=== PATIENT | female | born 2005 | race Caucasian/White ===

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

== ENCOUNTER 2025-06-03 12:13 | Emergency (ER) | payer MEDICAID, SELFPAY ==
--- NOTE | ~2025-06-03 | CT_ITS ---
CLINICAL HISTORY: abdominal pain, nausea, vomiting Exam: Contrast-enhanced CT abdomen and pelvis with multiplanar reformats. Comparison: 12/25/2022. Findings: CT abdomen: Lung bases appear clear. Liver is free of focal lesions and ductal dilatation. Gallbladder is somewhat degraded by motion artifact although appears grossly unremarkable. Spleen is mildly prominent measuring 14.0 cm AP dimension, relatively similar compared with the prior exam. Pancreas is somewhat degraded by motion however appears grossly unremarkable. Adrenal glands appear unremarkable. Kidneys are grossly unremarkable. No free intraperitoneal fluid or retroperitoneal masses or adenopathy. Abdominal aorta is normal caliber. Bowel loops reveal no abnormal wall thickening or distention. The appendix is not definitively delineated although there is no CT evidence of appendicitis. CT pelvis: Uterus and adnexal structures appear unremarkable. Urinary bladder is free of gross filling defects. No pelvic masses, fluid or adenopathy. Osseous structures reveal no destructive osseous lesions. Impression: 1. No acute abnormalities or CT explanation for reported history of abdominal pain. This document has been electronically signed by: Ferny Yeung MD on 06/03/2025 16:29:43
--- NOTE | ~2025-06-03 | XR_ITS ---
CLINICAL HISTORY: cough,fever 2 view chest x-ray. Comparison: None Findings: No consolidation or effusion. Cardiac and mediastinal contours are unremarkable. Bones unremarkable. Impression: 1. No acute pulmonary disease. This document has been electronically signed by: Ferny Yeung MD on 06/03/2025 13:41:25
[2025-06-03 12:20] VITALS: BP 103/63; PULSE 122; O2SAT 100
[2025-06-03 12:34] VITALS: BP 126/68; PULSE 107; RESP 18; TEMP 39.3; O2SAT 97
[2025-06-03 12:44] VITALS: BMI 30.1
[2025-06-03] MEDS: Lactated Ringers 1,000 ML 999 ML IV ×2 (13:22→15:24)
[2025-06-03 13:29] LABS: MANUAL DIFF FLAG NO
[2025-06-03 13:30] LABS: Hematocrit 34.3 % (37.0-47.0); Hemoglobin 11.2 g/dl (12.0-16.0); Imm Gran Abs Auto 0.04 X10*3/uL (0.00-0.03); Imm Gran Pct Auto 0.5 % (0.0-0.4); Lymphocytes Absolute Auto 0.4 X10*3/uL (1.2-4.9); Mean Corpuscular HGB Conc 32.7 g/dl (31.0-35.0); Mean Corpuscular Hemoglobin 28.2 pg (27.0-33.0); Mean Corpuscular Volume 86.4 fL (80.0-98.0); NRBC Abs Auto 0.000 X10*3/uL (0.0-0.012); NRBC Pct Auto 0.0 /100WBC (0.0-0.2); Platelet Count 145 X10*3/uL (160-400); Red Blood Count 3.97 X10*6/uL (4.20-5.50); White Blood Count 8.2 X10*3/uL (4.8-10.8)
[2025-06-03 13:37] LABS: IDNOW Serial# 6674DD1D; Strep A Nucleic Acid Negative (Negative)
[2025-06-03 13:42] LABS: Anion Gap 15 (12-20); Blood Urea Nitrogen 9 mg/dL (9-16); Calcium 8.7 mg/dL (8.4-10.2); Carbon Dioxide 20 mmol/L (22-29); Chloride 105 mmol/L (96-108); Creatinine Clr Calc Pharmacy 87.3; Estimated Glomerular Filt Rate > 60; Potassium 3.6 mmol/L (3.3-5.1); Sodium 136 mmol/L (135-145)
[2025-06-03 14:11] VITALS: TEMP 37.7
[2025-06-03 14:11] LABS: Resp Syncy Virus RNA Qual PCR NEGATIVE (Negative); SARS COV2 PCR INHOUSE NEGATIVE (Negative)
[2025-06-03 15:00] VITALS: BP 110/62; PULSE 117; RESP 20; TEMP 37.7; O2SAT 98
[2025-06-03 15:03] LABS: Appearance Urine Hazy; Glucose Urine UA Negative (Negative); PH 6.0 (5.0-9.0); Specific Gravity - Urine 1.020 (1.005-1.025); UMIC TRIGGER UACC YES
[2025-06-03 15:08] LABS: UPreg QC Valid YES
--- NOTE | 2025-06-03 15:22 | ED.GENADULT ---
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 Monzon HPI narrative: 20-year-old female came in for evaluation of generalized body ache, sore throat, cough, abdominal pain, nausea, and vomiting. x1 day, history of exposure to a family member with similar symptoms, patient also is complaining of abdominal pain mostly on right side. Related Data Previous Rx's ?Medication ?Instructions ?Recorded ibuprofen 400 mg tablet 400 mg PO Q6H PRN pain #20 tabs 06/03/25 ondansetron 4 mg disintegrating 4 mg PO TID PRN nausea and 06/03/25 tablet vomiting 5 days #10 tabs oseltamivir 75 mg capsule (Tamiflu) 75 mg PO Q12H 5 days #10 caps 06/03/25 Allergies Allergy/AdvReac Type Severity Reaction Status Date / Time No Known Allergies (No Known Allergy Unverified 06/03/25 12:45 Allergies*) Review of Systems Review of Systems: All other systems are reviewed and are negative Constitutional: Reports as per HPI and Reports no additional constitutional complaints Eyes: Reports as per HPI and Reports no additional eye complaints Reports system reviewed and no additional complaints, except as documented Cardiovascular: Reports as per HPI and Reports no additional cardiovascular complaints Respiratory: Reports as per HPI and Reports no additional respiratory complaints Gastrointestinal: Reports as per HPI and Reports no additional gastrointestinal complaints Genitourinary: Reports no additional female genitourinary complaints Musculoskeletal: Reports no additional musculoskeletal complaints Skin/Breast: Reports system reviewed and no additional complaints, except as docu Psychiatric: Reports no additional psychiatric complaints Endocrine: Reports no additional endocrine complaints Hematologic/Lymphatic: Reports no additional hematologic/lymphatic complaints Allergic/Immunologic: Reports no additional allergic/immunologic complaints Reports system reviewed and no additional complaints, except as documented and Reports Abnormal speech present [facility] Past Medical History Medical History Problem with family member being ill Insomnia Palpitations Lightheadedness No known health problems Patient denies significant medical history Problem with family member being ill Insomnia Palpitations Lightheadedness No known health problems Patient denies significant medical history Problem with family member being ill Insomnia Palpitations Lightheadedness No known health problems Patient denies significant medical history Problem with family member being ill Insomnia Palpitations Lightheadedness No known health problems Social History Social History Unable to assess alcohol history related to: Unknown Alcohol intake: never Smoked in Last 30 Days: No Use of substances other than those prescribed or required for medical reasons: Unknown Advance Directives: No Advance Directives Information Provided: Yes Physical Exam ED Vital Signs: Vital Signs - 24 hr 06/03/25 12:34 06/03/25 14:11 06/03/25 15:00 Temperature 102.7 F H 99.9 F 100 F Pulse Rate 107 H 117 H Respiratory Rate 18 20 Blood Pressure 126/68 110/62 Pulse Oximetry 97 98 Oxygen Delivery Method Room Air Room Air 06/03/25 17:39 Temperature 98.1 F Pulse Rate 98 Respiratory Rate 16 Blood Pressure 116/65 Pulse Oximetry 97 Oxygen Delivery Method Room Air BMI result Body Mass Index 30.1 Vital signs have been reviewed and appear to be correct. Blood pressure elevated. Heart rate Elevated. Respiratory rate normal. Temperature normal. Oxygen saturation normal. Appearance: Alert. Oriented X3. No acute distress. Head: Normal external exam. Normocephalic. Atraumatic. No Mann signs noted. No raccoon eyes noted Eyes: PERRLA. EOMI. Conjunctiva and sclera normal. Eyelids normal. ENT: TM's Normal. Pharynx normal. Uvula midline. Moist mucous membranes. No trismus noted. No drooling noted. No muffled voice noted. Neck: Normal inspection. Neck supple. FROM. No adenopathy. Thyroid Normal. No meningeal signs. No neck mass noted. CVS: Normal heart rate and rhythm. Heart sound normal. No murmurs noted. Pulses normal throughout. Respiratory: No respiratory distress. Painless inspiration. Breath sounds normal. No wheezes/rales/rhonchi noted. Chest nontender. No accessory muscle usage noted or decreased air movement noted. Abdomen: Soft and nontender. Bowel sounds normal in all 4 quadrants. No distention noted. No organomegaly noted. No visible injury noted. Back: No CVA tenderness. Full range of motion noted. Skin: Skin warm and dry. Normal skin color. Normal skin turgor. No rashes/lesions/lacerations noted. Extremities: No lower extremity edema. Extremities exhibit normal range of motion. Extremities nontender. Neuro: Oriented X 3. Cranial nerve exam: II-XII are grossly intact No motor deficit. No sensory deficit. Reflexes normal. Course Reevaluation(s) Reevaluation #1: 20-year-old female with flu-like symptoms, patient is positive for influenza A, will start on Tamiflu, IV hydration, symptomatic treatment with Zofran. Abdominal pain and hematuria abdominal pain can be part of the viral infection patient will get CT abdomen and pelvis. Signed out to Dr. Michaels to check on the CT and re-evaluate. Time: 16:00 Medications Administered Discontinued Medications Generic Name Dose Route Start Last Admin Trade Name Freq PRN Reason Stop Dose Admin Acetaminophen 975 mg 06/03/25 12:48 06/03/25 12:55 Acetaminophen 325 Mg Tablet PO 06/03/25 12:49 975 mg ONCE ONE Administration Lactated Ringer's 1,000 mls @ 999 mls/hr 06/03/25 13:15 06/03/25 14:39 Lr IV 06/03/25 14:15 Infused .Q1H1M ROVERTO Infusion Acetaminophen 1,000 mg in 100 mls @ 400 mls/hr 06/03/25 15:02 06/03/25 15:46 Ofirmev IV 06/03/25 15:16 Infused ONCE ONE Infusion Lactated Ringer's 1,000 mls @ 999 mls/hr 06/03/25 15:15 06/03/25 16:23 Lr IV 06/03/25 16:15 Infused .Q1H1M ROVERTO Infusion Iohexol 100 ml 06/03/25 15:41 06/03/25 15:42 Iohexol 350 Mg/Ml 100 Ml Infus..Btl IV 06/03/25 15:42 85 ml ONCE ONE Administration Ketorolac Tromethamine 15 mg 06/03/25 15:23 06/03/25 15:41 Ketorolac Tromethamine 15 Mg/Ml Vial IVPUSH 06/03/25 15:24 15 mg ONCE ONE Administration Ondansetron HCl 4 mg 06/03/25 15:02 06/03/25 15:22 Ondansetron Hcl 4 Mg/2 Ml Vial IVPUSH 06/03/25 15:03 4 mg ONCE ONE Administration Oseltamivir Phosphate 75 mg 06/03/25 15:25 06/03/25 15:42 Oseltamivir Phosphate 75 Mg Capsule PO 06/03/25 15:26 75 mg ONCE ONE Administration Medical Decision Making Medical Decision Making [facility] Narrative: Influenza was positive. patient well-appearing. Given IV fluids. Symptomatically feel improved. CT scan result was negative. Tolerating p.o.. Patient to be discharged home Differential Diagnosis Differential Diagnoses: The differential diagnosis associated with the presentation includes ( pneumonia, pneumothorax, pleural effusion, influenza a, RSV, COVID-19 infection, kidney stone, acute appendicitis, dehydration, electrolyte derangement, severe anemia, UTI.) Admission/Observation Consideration of admission/observation: Escalation of care including admission/observation considered Lab Data [facility] Lab Attestation statement: I reviewed the patient's lab results. 06/03/25 13:20 06/03/25 13:20 Labs: Lab Results 06/03/25 06/03/25 06/03/25 Range/Units 13:19 13:20 14:57 WBC 8.2 (4.8-10.8) X10*3/uL RBC 3.97 L (4.20-5.50) X10*6/uL Hgb 11.2 L (12.0-16.0) g/dl Hct 34.3 L (37.0-47.0) % MCV 86.4 (80.0-98.0) fL MCH 28.2 (27.0-33.0) pg MCHC 32.7 (31.0-35.0) g/dl RDW 13.2 (11.0-16.0) % Plt Count 145 L D (160-400) X10*3/uL MPV 13.0 H (9.4-12.3) fL Immature Gran % (Auto) 0.5 H (0.0-0.4) % Neut % (Auto) 84.7 H (45-73) % Lymph % (Auto) 5.2 L (20-40) % [place] % (Auto) 9.0 (2-11) % Eos % (Auto) 0.2 (0-4) % Baso % (Auto) 0.4 (0-2) % Lymph # (Auto) 0.4 L (1.2-4.9) X10*3/uL [place] # (Auto) 0.7 (0.1-1.2) X10*3/uL Eos # (Auto) 0.0 (0.0-0.4) X10*3/uL Baso # (Auto) 0.0 (0.0-0.2) X10*3/uL Abs Immat Gran (auto) 0.04 H (0.00-0.03) X10*3/uL Absolute Neuts (auto) 6.9 (2.0-8.3) x10*3/uL Absolute Nucleated RBC 0.000 (0.0-0.012) X10*3/uL Nucleated RBC % (auto) 0.0 (0.0-0.2) /100WBC Sodium 136 (135-145) mmol/L Potassium 3.6 (3.3-5.1) mmol/L Chloride 105 (96-108) mmol/L Carbon Dioxide 20 L (22-29) mmol/L Anion Gap 15 (12-20) BUN 9 (9-16) mg/dL Creatinine 1.01 (0.5-1.4) mg/dL Estim Creat Clear Calc 87.3 Estimated GFR > 60 Random Glucose 101 (60-115) mg/dL Calcium 8.7 D (8.4-10.2) mg/dL Beta HCG, Quant < 2 mIU/mL Urine Color Yellow Urine Appearance Hazy Urine pH 6.0 (5.0-9.0) Ur Specific [place] 1.020 (1.005-1.025) Urine Protein Negative (Neg-Trace) mg/dL Urine Glucose (UA) Negative (Negative) mg/dL Urine Ketones >=80 (Negative) mg/dL Urine Blood Large (3+) H (Negative) Urine Nitrite Negative (Negative) Ur Leukocyte Esterase Negative (Negative) Urine RBC >20 H (0-2) /HPF Urine WBC 0-5 (0-5) /HPF Ur Squamous Epith Cells 11-20 (0-2) /HPF Urine Bacteria Trace (None Seen) Hyaline Casts 0-2 (0-2) /LPF Urine Test NEGATIVE (NEGATIVE) Influenza Type A (PCR) POSITIVE A (Negative) Influenza Type B (PCR) NEGATIVE (Negative) RSV RNA Qual (PCR) NEGATIVE (Negative) SARS-CoV-2 RNA (RT-PCR) NEGATIVE (Negative) S. pyogenes GrpA CHAMP Negative (Negative) Independent Interpretation I performed an independent interpretation of an: Plain X-Ray ( Chest: No acute pulmonary disease.) Radiology Impression Discussion of test interpretation with radiology: I have reviewed the radiologist's reading. Discharge Plan Discharge Clinical Impression: Influenza A Patient Disposition: Home, Self-Care Instructions: Influenza (ED) Additional Instructions: drink plenty of fluids. Take the medicine as prescribed. Prescriptions: New oseltamivir [Tamiflu] 75 mg capsule 75 mg PO Q12H 5 Days Qty: 10 0RF ibuprofen 400 mg tablet 400 mg PO Q6H PRN (Reason: pain) Qty: 20 0RF ondansetron 4 mg tablet,disintegrating 4 mg PO TID PRN (Reason: nausea and vomiting) 5 Days Qty: 10 0RF Referrals: [facility] [Primary Care Provider, Medical] Stand Alone Forms: Work/School Release Print Language: Omani
[2025-06-03] MEDS: iohexoL 350 MG/ML 100 ML INFUS..BTL IV (15:42)
[2025-06-03 17:39] VITALS: BP 116/65; PULSE 98; RESP 16; TEMP 36.7; O2SAT 97
[2025-06-03 18:39] VITALS: BP 116/65; PULSE 98; RESP 16; TEMP 36.7; O2SAT 97
== END 2025-06-03 18:41 | disposition home or self-care (01) ==
PROVIDERS: Emergency Medicine; Emergency Provider Emergency Medicine Emergency Medical Services
DX: J10.1 Influenza due to other identified influenza virus with other respiratory manifestations (principal); R50.9 Fever, unspecified; R06.02 Shortness of breath; R05.9 Cough, unspecified; Z03.818 Encounter for observation for suspected exposure to other biological agents ruled out; R10.9 Unspecified abdominal pain; R11.2 Nausea with vomiting, unspecified
CPT/HCPCS: 36415; 71046; 74177; 80048; 81001; 81025; 84702; 85025; 87637; 87651; 96361; 96365; 96375; 99285; J0131; J1885; J2405; J7120; Q9967

== ENCOUNTER → 2025-06-03 12:49 | Outpatient (BNV) | payer MEDICAID, SELFPAY | PROVIDERS: Emergency Provider Emergency Medicine; Visit Provider Radiology Diagnostic Radiology | DX: R10.9 Unspecified abdominal pain (principal); R11.2 Nausea with vomiting, unspecified; R05.9 Cough, unspecified; R50.9 Fever, unspecified | CPT/HCPCS: 71046; 74177 ==